=== PATIENT | female | born 1950 | race Caucasian/White ===

== ENCOUNTER 2017-08-10 19:04 | Emergency (ER) | payer MEDICAID ==
[~2017-08-10] VITALS: Ht 144.8 cm; Wt 82.6 kg
[2017-08-10 19:10] VITALS: BP 144/79
--- NOTE | 2017-08-10 21:38 | NUR ---
67 Y/O F W/C/O DRY COUGH/SORETHROAT X 4 DAYS. MED HX HTN, DM. TAKING ROBITUSSIN AND NYQUIL. PT DENIES ANY N/V/D, SOB, CP AT THE MOMENT. PT LUNG SOUNDS ARE CLEAR BILAT. PT STATES COUGH IS DRY AND NON PRODUCTIVE. ER MD LAM MADE AWARE
--- NOTE | 2017-08-10 21:42 | NUR ---
Patient being evaluated by physician at bedside.
[2017-08-10] MEDS ORDERED: IPRATROPIUM 0.02% 0.5 MG/2.5 ML NEBU INH ONE (21:50)
[2017-08-10] MEDS ORDERED: IBUPROFEN 600 MG TAB PO ONE (21:50)
[2017-08-10] MEDS ORDERED: ALBUTEROL 0.083% 2.5 MG/3 ML NEBU INH ONE (21:50)
[2017-08-10] MEDS ORDERED: ACETAMINOPHEN EXTRA STRENGTH 500 MG TAB PO ONE (21:50)
--- NOTE | 2017-08-10 22:00 | NUR ---
RT WITH PATIENT
--- NOTE | 2017-08-10 22:08 | NUR ---
PO MEDS GIVEN-NADR AT THIS TIME
--- NOTE | 2017-08-10 22:47 | NUR ---
Patient discharged with v/s stable. Written and verbal after care instructions given and explained. Patient alert, oriented and verbalized understanding of instructions. Ambulatory with steady gait. All questions addressed prior to discharge. ID band removed. Patient advised to follow up with PMD. Rx of ALBUTEROL 90MCG, MOTRIN 600MG given. Patient educated on indication of medication including possible reaction and side effects. Opportunity to ask questions provided and answered.
[2017-08-10 22:49] VITALS: BP 142/78
== END 2017-08-10 22:47 | disposition home or self-care (01) ==
LOC: MED 19:04
DX: J06.9 Acute upper respiratory infection, unspecified (principal); E11.9 Type 2 diabetes mellitus without complications; I10 Essential (primary) hypertension
CPT/HCPCS: 71046; 81002; 94640; 99284; J7613; J7644; Q0092

== ENCOUNTER 2017-09-12 12:41 | Emergency (ER) | payer MEDICAID ==
[~2017-09-12] VITALS: Ht 152.4 cm; Wt 65.8 kg
[2017-09-12 12:47] VITALS: BP 120/86
--- NOTE | 2017-09-12 13:03 | NUR ---
c/o dizziness x 5 days, progressively getting worse with headache, abd cramps, and dysuria hx--dm and htn rx--insulin (?), losaratan, pioglitazone, simvastavin, paroxetine. BIB GRANDDAUGHTER, JUST CAME BACK FROM [place] THIS WEDNESDAY.DENIES N/V/D; SKIN IS WARM/DRY; AAOX4 WITH EVEN AND STEADY GAIT; LUNGS CLEAR BL; HR EVEN AND REGULAR; PT DENIES ANY FEVER, CP, SOB, OR COUGH AT THIS TIME; PATIENT POSITIONED FOR COMFORT; HOB ELEVATED; BEDRAILS UP X2; BED DOWN. ER MD MADE AWARE OF PT STATUS.
--- NOTE | 2017-09-12 13:16 | NUR ---
Dr. Razo evaluating patient at bedside.
[2017-09-12] MEDS ORDERED: MECLIZINE 25 MG TAB PO ONE (13:25)
[2017-09-12] MEDS ORDERED: ONDANSETRON 4 MG ODT PO ONE ×2 (13:25→15:25)
[2017-09-12 13:51] LABS: BASOPHILS % (AUTO) 0.2 % (0.0-2.0); EOSINOPHILS # (AUTO) 0.2 K/uL (0-0.4); EOSINOPHILS % (AUTO) 2.5 % (0.0-4.0); HEMATOCRIT 40.9 % (36-48); HEMOGLOBIN 13.2 g/dL (12.0-16.0); LYMPHOCYTES # (AUTO) 1.7 K/uL (2.5-16.5); LYMPHOCYTES % (AUTO) 28.1 % (20.5-51.1); MEAN CORPUSCULAR HEMOGLOBIN 28 pg (27-31); MEAN CORPUSCULAR HGB CONC 32 g/dL (33-37); MEAN CORPUSCULAR VOLUME 85.9 fL (80-94); MONOCYTES # (AUTO) 0.5 K/uL (0.8-1.0); NEUTROPHILS # (AUTO) 3.8 K/uL (1.8-7.7); NEUTROPHILS % (AUTO) 61.2 % (42.2-75.2); PLATELET COUNT (AUTO) 192 K/uL (140-450); RED BLOOD CELL COUNT(AUTO) 4.75 MIL/uL (4.20-5.40); RED CELL DISTRIBUTION WIDTH 14.8 % (11.6-13.7); WHITE BLOOD COUNT (AUTO) 6.2 K/uL (4.8-10.8)
[2017-09-12 14:00] LABS: ANION GAP 12.8 (8-16); CARBON DIOXIDE 26.7 mmol/L (21-32); CREATININE 1.2 mg/dL (0.6-1.3); POTASSIUM 4.5 mmol/L (3.5-5.1)
[2017-09-12 14:06] LABS: ALBUMIN 3.2 g/dL (3.4-5.0); TOTAL BILIRUBIN 0.4 mg/dL (0.0-1.0)
--- NOTE | 2017-09-12 14:20 | NUR ---
NOTIFIED PT VITALS, HR 55
--- NOTE | 2017-09-12 15:15 | NUR ---
PT STAYING IN BED, STATED DIZYNESS GETTING RELIEVED.
[2017-09-12 16:38] VITALS: BP 126/62
--- NOTE | 2017-09-12 16:38 | NUR ---
Patient discharged with v/s stable. Written and verbal after care instructions given and explained. Patient alert, oriented and verbalized understanding of instructions. Ambulatory with steady gait. All questions addressed prior to discharge. ID band removed. Patient advised to follow up with PMD. Rx of CLARITIN, ZOFRAN, AND AMOXICILLIN given. Patient educated on indication of medication including possible reaction and side effects. Opportunity to ask questions provided and answered.
[2017-09-12 19:01] LABS: APPEARANCE,URINE CLEAR (CLEAR); BILIRUBIN,URINE NEGATIVE (NEGATIVE); BLOOD, URINE NEGATIVE (NEGATIVE); COLOR,URINE YELLOW (YELLOW); LEUKOCYTE ESTERASE ,URINE NEGATIVE (NEGATIVE); NITRITE, URINE NEGATIVE (NEGATIVE); UGLUCOSE NEGATIVE (NEGATIVE)
[2017-09-12 19:11] LABS: RBC,URINE 0-5 (RARE) /HPF (0-5); WBC,URINE NONE SEEN /HPF (0-5)
== END 2017-09-12 16:38 | disposition home or self-care (01) ==
LOC: MED 12:41
DX: H81.10 Benign paroxysmal vertigo, unspecified ear (principal); J32.9 Chronic sinusitis, unspecified
CPT/HCPCS: 36415; 70450; 80053; 81001; 84484; 85025; 99285; J8597; S0119

== ENCOUNTER 2019-02-10 22:14 | Emergency (ER) | payer MEDICAID, OTHER ==
[~2019-02-10] VITALS: Ht 149.9 cm; Wt 82.6 kg
[2019-02-10 22:26] VITALS: BP 141/68
--- NOTE | 2019-02-10 22:32 | NUR ---
PT AMBULATED TO LOBBY WITH VSS
--- NOTE | 2019-02-10 23:49 | NUR ---
TO ED 07 WITH STEADY GAIT.
--- NOTE | 2019-02-11 00:04 | NUR ---
68 Y/O FEMALE C/O EYE PAIN. BUMP ON R EYELID X3 DAYS. BUMP INCREASING IN SIZE OVER PAST FEW DAYS. 8/10 PAIN, PULSATING PAIN. PERRLA +2. 1 INCH HARD BUMP, WITH SURROUNDING REDNESS BELOW THE EYEBROW. PATIENT STATES THAT SHE IS ABLE TO SEE WITH BOTH EYES WITHOUT ANY PROBLEMS. ERMD MADE AWARE OF STATUS. SIDE RAILS X2. DAUGHTER AT BEDSIDE. NKA PMH: DM, HTN
--- NOTE | 2019-02-11 00:16 | NUR ---
COVERING PRIMARY RN FOR LUNCH RELIEF.
[2019-02-11 02:35] VITALS: BP 141/68
--- NOTE | 2019-02-11 02:35 | NUR ---
Patient discharged with v/s stable. Written and verbal after care instructions given and explained TO PATIENT AND PATIENT'S DAUGHTER. Patient alert, oriented and verbalized understanding of instructions. Ambulatory with to car. All questions addressed prior to discharge. ID band removed. Patient advised to follow up with PMD. Rx of KEFLEX 500MG; MOTRIN 800MG given. Patient educated on indication of medication including possible reaction and side effects. Opportunity to ask questions provided and answered.
== END 2019-02-11 02:35 | disposition home or self-care (01) ==
LOC: MED 22:14
DX: L08.9 Local infection of the skin and subcutaneous tissue, unspecified (principal); E11.9 Type 2 diabetes mellitus without complications; I10 Essential (primary) hypertension; Z98.890 Other specified postprocedural states
CPT/HCPCS: 99283

== ENCOUNTER 2019-08-03 18:07 | Emergency (ER) | payer BC, OTHER ==
[~2019-08-03] VITALS: Ht 147.3 cm; Wt 80.7 kg
[2019-08-03 18:12] VITALS: BP 148/62
--- NOTE | 2019-08-03 18:25 | NUR ---
PT AMB TO BED 6.
--- NOTE | 2019-08-03 19:30 | NUR ---
69 YO FEMALE BIB FAMILY FOR C/O NAUSEA, GENERALIZED ABDOMINAL PAIN X 1 MONTH. AAOX4 ACTIVE BS X4. DENIES DIARRHEA AND OR VOMITING. LAST BM SMALL AMOUNT TODAY. GURNEY LOCKED IN LOWEST POSITION. HX:DM, HTN, HIGH CHOLESTERL, THYROID. RX: UNKNOWN
[2019-08-03 19:48] LABS: BASOPHILS % (AUTO) 0.5 % (0.0-2.0); EOSINOPHILS # (AUTO) 0.1 K/uL (0-0.4); EOSINOPHILS % (AUTO) 1.2 % (0.0-4.0); HEMATOCRIT 37.8 % (36-48); HEMOGLOBIN 12.7 g/dL (12.0-16.0); LYMPHOCYTES # (AUTO) 1.8 K/uL (2.5-16.5); LYMPHOCYTES % (AUTO) 24.9 % (20.5-51.1); MEAN CORPUSCULAR HEMOGLOBIN 28 pg (27-31); MEAN CORPUSCULAR HGB CONC 33 g/dL (33-37); MEAN CORPUSCULAR VOLUME 84.2 fL (80-94); MONOCYTES # (AUTO) 0.5 K/uL (0.8-1.0); NEUTROPHILS # (AUTO) 4.9 K/uL (1.8-7.7); NEUTROPHILS % (AUTO) 66.4 % (42.2-75.2); PLATELET COUNT (AUTO) 239 K/uL (140-450); RED BLOOD CELL COUNT(AUTO) 4.49 MIL/uL (4.20-5.40); RED CELL DISTRIBUTION WIDTH 14.8 % (11.6-13.7); WHITE BLOOD COUNT (AUTO) 7.4 K/uL (4.8-10.8)
[2019-08-03 20:05] LABS: ALBUMIN 3.8 g/dL (3.4-5.0); ANION GAP 10.3 (8-16); CARBON DIOXIDE 28.1 mmol/L (21-32); CREATININE 1.6 mg/dL (0.6-1.3); POTASSIUM 4.4 mmol/L (3.5-5.1); TOTAL BILIRUBIN 0.2 mg/dL (0.0-1.0)
--- NOTE | 2019-08-03 20:06 | NUR ---
PT TAKEN TO CT
--- NOTE | 2019-08-03 20:14 | NUR ---
PT RETURN FROM CT
--- NOTE | 2019-08-03 20:18 | NUR ---
Dr. Jones examining patient.
[2019-08-03 20:37] LABS: APPEARANCE,URINE CLEAR (CLEAR); BILIRUBIN,URINE NEGATIVE (NEGATIVE); BLOOD, URINE NEGATIVE (NEGATIVE); COLOR,URINE YELLOW (YELLOW); LEUKOCYTE ESTERASE ,URINE NEGATIVE (NEGATIVE); NITRITE, URINE NEGATIVE (NEGATIVE); PH,URINE 5.5 (5.0-9.0); UGLUCOSE 3+ (NEGATIVE)
--- NOTE | 2019-08-03 21:30 | NUR ---
DR NETTLES @ BEDSIDE TALKING TO FAMILY @ PT ABOUT CT RESULTS
[2019-08-03 21:57] VITALS: BP 153/78
--- NOTE | 2019-08-03 21:57 | NUR ---
Patient refusing to be admitted to hospital, patient does not wish to proceed with medical care recommended by Dr Jones, despite education. Patient given information related to possible complications, up to and including , which could occur as a result of leaving hospital at this time. Patient verbalizes understanding of risks involved leaving against medical advice. Patient has signed AMA form. Pt VSS, denies any abd pain, pt afebrile. Pt given instructions, Rx motrin with education, CD of CT scan, and instructed to come back to ER for worsening abd pain, fever/chills, n/v, or worsening s/s, instructed to follow up with PCP tomorrow and [facility].
== END 2019-08-03 21:57 | disposition left against medical advice (07) ==
LOC: MED 18:07
DX: K35.80 Unspecified acute appendicitis (principal); E11.9 Type 2 diabetes mellitus without complications; I10 Essential (primary) hypertension; E07.9 Disorder of thyroid, unspecified; Z98.890 Other specified postprocedural states
CPT/HCPCS: 36415; 80053; 81003; 83690; 85025; 99284

== ENCOUNTER 2020-10-03 21:24 | Emergency (ER) | payer BC, OTHER ==
[~2020-10-03] VITALS: Ht 147.3 cm; Wt 79.4 kg
[2020-10-03 21:41] VITALS: BP 158/75
[2020-10-03] MEDS ORDERED: ONDANSETRON 4 MG ODT PO ONE (22:05)
[2020-10-03] MEDS ORDERED: HYDROcodone/APAP 5/325 MG 1 TAB TAB PO ONE (22:05)
[2020-10-03] MEDS ORDERED: ACET-8386 PO (22:55)
[2020-10-03 23:23] VITALS: BP 142/84
== END 2020-10-03 23:20 | disposition home or self-care (01) ==
LOC: MED 21:24
DX: M17.11 Unilateral primary osteoarthritis, right knee (principal); E11.9 Type 2 diabetes mellitus without complications; I10 Essential (primary) hypertension; E07.9 Disorder of thyroid, unspecified; E78.00 Pure hypercholesterolemia, unspecified
CPT/HCPCS: 73562; 99283; Q0162

== ENCOUNTER 2022-04-05 05:11 | Emergency (ER) | payer BC, OTHER ==
[~2022-04-05] VITALS: Ht 147.3 cm; Wt 92.5 kg
[~2022-04-05 05:11] MED LIST: ACET-8386 PO
[2022-04-05 05:18] VITALS: BP 114/84
--- NOTE | 2022-04-05 05:36 | NUR ---
PT TAKEN TO BED 9
--- NOTE | 2022-04-05 05:57 | NUR ---
Patient lying in bed, A/Ox4, chest rise and fall symmetrical, no c/o pain or s/s of discomfort. Addendum: 04/05/22 at 0557 by [email or web address] Patient lying in bed, A/Ox4, chest rise and fall symmetrical, no c/o pain or s/s of discomfort, patient on monitor.
[2022-04-05 06:11] LABS: APPEARANCE,URINE CLEAR (CLEAR); BILIRUBIN,URINE NEGATIVE (NEGATIVE); BLOOD, URINE NEGATIVE (NEGATIVE); COLOR,URINE YELLOW (YELLOW); LEUKOCYTE ESTERASE ,URINE TRACE (NEGATIVE); NITRITE, URINE NEGATIVE (NEGATIVE); UGLUCOSE 1+ (NEGATIVE)
[2022-04-05 06:12] LABS: BASOPHILS % (AUTO) 0.2 % (0.0-2.0); EOSINOPHILS % (AUTO) 0.2 % (0.0-4.0); HEMATOCRIT 30.6 % (36-48); HEMOGLOBIN 9.4 g/dL (12.0-16.0); LYMPHOCYTES # (AUTO) 0.5 K/uL (2.5-16.5); MEAN CORPUSCULAR HEMOGLOBIN 23 pg (27-31); MEAN CORPUSCULAR HGB CONC 31 g/dL (33-37); MEAN CORPUSCULAR VOLUME 75.8 fL (80-94); NEUTROPHILS # (AUTO) 3.8 K/uL (1.8-7.7); NEUTROPHILS % (AUTO) 86.6 % (42.2-75.2); PLATELET COUNT (AUTO) 295 K/uL (140-450); RED BLOOD CELL COUNT(AUTO) 4.04 MIL/uL (4.20-5.40); RED CELL DISTRIBUTION WIDTH 16.4 % (11.6-13.7); WHITE BLOOD COUNT (AUTO) 4.4 K/uL (4.8-10.8)
[2022-04-05 06:31] LABS: RBC,URINE 0-5 /HPF (0-5); WBC,URINE 0-5 /HPF (0-5)
[2022-04-05 06:32] LABS: ALBUMIN 2.9 g/dL (3.4-5.0); ANION GAP 17.6 (8-16); ASPARTATE AMINOTRANSFERASE 305 U/L (15-37); CHLORIDE 104 mmol/L (98-107); CREATININE 1.4 mg/dL (0.6-1.3); GLUCOSE 237 mg/dL (74-106); LIPASE 194 U/L (73-393); OTHER CASTS, URINE None Seen /LPF (None Seen); POTASSIUM 4.6 mmol/L (3.5-5.1); SODIUM SERUM 141 mmol/L (136-145); TOTAL BILIRUBIN 0.8 mg/dL (0.0-1.0); UREA NITROGEN, BLOOD 26 mg/dL (7-18)
[2022-04-05] MEDS ORDERED: ONDANSETRON 4 MG/2 ML VIAL IVP ONE (07:10)
[2022-04-05] MEDS ORDERED: NACL 0.9% 1,000 ML IV ONE (07:10)
--- NOTE | 2022-04-05 07:23 | NUR ---
Assumed care of pt at this time. Dr Jones at bedside to assess pt.
--- NOTE | 2022-04-05 07:28 | NUR ---
Pt report given to Josette BEAUCHAMP. Josette BEAUCHAMP verbalized understanding of report, no further questions.
--- NOTE | 2022-04-05 07:28 | NUR ---
Pt report given to Josette BEAUCHAMP. Josette BEAUCHAMP verbalized understanding of report, no further questions.
--- NOTE | 2022-04-05 08:15 | NUR ---
Pt unsure o home medications at this time. Arboleda daughter and she will go to their home and make a list of medications for the ER
--- NOTE | 2022-04-05 09:43 | NUR ---
Pt AOX4, able to make needs known. GCS15. Pt given update on plan of care and F/U on home medications. No list available at this time. Pt able to reposition self for comfort. IV WNL
--- NOTE | 2022-04-05 10:40 | NUR ---
All critical labs reported to Dr Jones.
--- NOTE | 2022-04-05 11:48 | NUR ---
PT PLACED ON 2L NC
--- NOTE | 2022-04-05 11:53 | NUR ---
Spoke to daughter in regards to medication list and she has not prepared it at this time. Educated family on need of this list and will go home now to prepare it. Full update given per permission of pt.
--- NOTE | 2022-04-05 13:00 | NUR ---
Report called at [facility] for rm # [id number] to Devora BEAUCHAMP
[2022-04-05 13:20] VITALS: BP 113/50
--- NOTE | 2022-04-05 13:20 | NUR ---
Patient to be transferred to [facility]. Receiving facility has accepting physician and available space. ER physician has signed transfer form. Patient or responsible alliance party has agreed to transfer and signed form. Patient belongings inventoried and will be sent with patient. Copy of nursing notes, lab reports, EKG, Physicians Orders and X-rays to be sent with patient. Report called to Devora BEAUCHAMP at receiving facility. [facility] ambulance service has been called for transfer.
--- NOTE | 2022-04-06 09:45 | NUR ---
LATE ENTRY- IV NS DISCONTINUED AT 1320.
== END 2022-04-05 13:20 | disposition short-term general hospital (02) ==
LOC: MED 05:11
DX: K80.80 Other cholelithiasis without obstruction (principal); Z20.822 Contact with and (suspected) exposure to COVID-19; E03.9 Hypothyroidism, unspecified; I10 Essential (primary) hypertension; E11.9 Type 2 diabetes mellitus without complications; Z79.4 Long term (current) use of insulin; Z79.899 Other long term (current) drug therapy; Z98.890 Other specified postprocedural states
CPT/HCPCS: 36415; 74176; 76705; 80053; 81001; 83690; 85025; 87426; 96361; 96374; 99285; J2405; Q0092

== ENCOUNTER 2023-06-25 21:50 | Emergency (ER) | payer OTHER, MEDICAID ==
[~2023-06-25] VITALS: Ht 149.9 cm; Wt 83.0 kg
[2023-06-25 21:56] VITALS: BP 142/68; PULSE 86; RESP 16; TEMP 98.6; O2SAT 97
[2023-06-25] MEDS ORDERED: ASPIRIN 81 MG TAB.CHEW PO ONE (22:40)
[2023-06-25 23:48] LABS: FLU A ANTIGEN negative (NEGATIVE); FLU B ANTIGEN NEGATIVE (NEGATIVE)
[2023-06-25 23:55] LABS: BASOPHILS % (AUTO) 0.4 % (0.0-2.0); EOSINOPHILS # (AUTO) 0.1 K/uL (0-0.4); EOSINOPHILS % (AUTO) 1.6 % (0.0-4.0); HEMATOCRIT 29.3 % (36-48); HEMOGLOBIN 9.1 g/dL (12.0-16.0); LYMPHOCYTES # (AUTO) 1.6 K/uL (2.5-16.5); LYMPHOCYTES % (AUTO) 20.8 % (20.5-51.1); MEAN CORPUSCULAR HEMOGLOBIN 21 pg (27-31); MEAN CORPUSCULAR HGB CONC 31 g/dL (33-37); MEAN CORPUSCULAR VOLUME 67.8 fL (80-94); MONOCYTES # (AUTO) 0.7 K/uL (0.8-1.0); MONOCYTES % (AUTO) 8.7 % (1.7-9.3); NEUTROPHILS # (AUTO) 5.4 K/uL (1.8-7.7); NEUTROPHILS % (AUTO) 68.5 % (42.2-75.2); PLATELET COUNT (AUTO) 283 K/uL (140-450); RED BLOOD CELL COUNT(AUTO) 4.32 MIL/uL (4.20-5.40); RED CELL DISTRIBUTION WIDTH 20.4 % (11.6-13.7); WHITE BLOOD COUNT (AUTO) 7.9 K/uL (4.8-10.8)
[2023-06-26 00:41] LABS: ALANINE AMINOTRANSFERASE 39 U/L (12-78); ALBUMIN 2.8 g/dL (3.4-5.0); ALKALINE PHOSPHATASE 71 U/L (50-136); ASPARTATE AMINOTRANSFERASE 32 U/L (15-37); CALCIUM 8.8 mg/dL (8.5-10.1); CARBON DIOXIDE 26.9 mmol/L (21-32); CHLORIDE 101 mmol/L (98-107); CREATININE 1.4 mg/dL (0.6-1.3); GLUCOSE 296 mg/dL (74-106); POTASSIUM 4.9 mmol/L (3.5-5.1); SODIUM SERUM 133 mmol/L (136-145); TOTAL BILIRUBIN 0.2 mg/dL (0.0-1.0); TOTAL PROTEIN, SERUM 8.1 g/dL (6.4-8.2); UREA NITROGEN, BLOOD 22 mg/dL (7-18)
[2023-06-26] MEDS ORDERED: DEXT30SE7 PO (01:27)
[2023-06-26 01:44] VITALS: BP 142/68; PULSE 86; RESP 16; TEMP 98.6; O2SAT 97
== END 2023-06-26 01:44 | disposition home or self-care (01) ==
LOC: MED 21:50
DX: B34.9 Viral infection, unspecified (principal); Z20.822 Contact with and (suspected) exposure to COVID-19; E03.9 Hypothyroidism, unspecified; E11.9 Type 2 diabetes mellitus without complications; I10 Essential (primary) hypertension; Z79.4 Long term (current) use of insulin; Z79.899 Other long term (current) drug therapy
CPT/HCPCS: 36415; 71045; 80053; 84484; 85025; 87426; 87804; 93005; 99285; Q0092